=== PATIENT | female | born 1985 | race Caucasian/White ===

== ENCOUNTER 2016-10-07 11:31 | Day surgery (SDC) | payer BC ==
[~2016-10-07] VITALS: Ht 154.9 cm; Wt 62.5 kg
[2016-10-07] VITALS (33 sets, daily range): BP systolic 91–127; BP diastolic 52–78; PULSE 74–106; RESP 11–64; TEMP 96.3–98.6; O2SAT 90–100; Ht 154.9 cm; Wt 62.5 kg
[~2016-10-07 11:31] MED LIST: CEFAZOLIN 1 GRAM INJECTION IV ONE; ESCI5TAB8 PO; LR 1,000 ML IV PRN; MULT-806 PO; PREN1TAB73 PO; [UNRECOGNIZED DRUG - CODE] PO
[2016-10-07 12:27] LABS: BASOPHILS # (AUTO) 0.1 T/MM3 (0-0.2); EOSINOPHILS # (AUTO) 0.2 T/MM3 (0-0.5); EOSINOPHILS % (AUTO) 3.9 % (0-4); HCT - HEMATOCRIT 40.1 % (36-46); HGB - HEMOGLOBIN 13.8 GM/DL (12-16); IMMATURE GRANULOCYTE # (AUTO) 0.01 T/MM3 (0.00-0.03); IMMATURE GRANULOCYTE % (AUTO) 0.2 % (0.0-0.5); LYMPHOCYTES # (AUTO) 2.1 T/MM3 (1-4.8); LYMPHOCYTES % (AUTO) 42.2 % (23-45); MEAN CORPUSCULAR HGB 30.5 UUG (26-34); MEAN CORPUSCULAR HGB CONC(MCHC 34.4 GM/DL (31-37); MEAN CORPUSCULAR VOLUME 88.7 UM3 (80-100); MEAN PLATELET VOLUME 10.5 UM3 (9.4-12.4); MONOCYTES # (AUTO) 0.2 T/MM3 (0-0.8); MONOCYTES % (AUTO) 4.9 % (0-9.0); NEUTROPHILS #(AUTO)-ABSOLUTE 2.3 T/MM3 (1.8-7.7); NEUTROPHILS % (AUTO) 47.8 % (33-66); RED BLOOD COUNT 4.52 M/MM3 (4.00-5.20); WBC - WHITE BLOOD COUNT 4.9 T/MM3 (4.5-11.0)
[2016-10-07 12:38] LABS: ALBUMIN 4.6 G/DL (3.5-5.0); ALBUMIN/GLOBULIN RATIO 1.3 RATIO (1.1-2.2); ALKALINE PHOSPHATASE 74 U/L (38-126); ALT (SGPT) 31 U/L (9-52); ANION GAP 15 MEQ/L (5-15); AST (SGOT) 27 U/L (14-36); BUN/CREATININE RATIO 21 RATIO (6-26); CHLORIDE 104 MEQ/L (98-107); CO2 - CARBON DIOXIDE 25 MEQ/L (22-30); CREATININE 0.8 MG/DL (0.7-1.2); GLOMERULAR FILTRATION RATE 84; GLUCOSE 101 MG/DL (65-110); POTASSIUM 3.6 MEQ/L (3.6-5); SODIUM 144 MEQ/L (134-144); TOTAL PROTEIN 8.2 G/DL (6.3-8.2)
[2016-10-07 13:28] LABS: BLOOD, URINE 1+ (NEGATIVE); COLOR,URINE YELLOW (YELLOW); LEUKOCYTE ESTERASE ,URINE NEGATIVE (NEGATIVE); NITRITE,URINE NEGATIVE (NEGATIVE); UROBILINOGEN,URINE 0.2 EU/DL (NORMAL)
[2016-10-07] MEDS ORDERED: BUPIVACAINE 0.25% (2.5mg/ml) INJ 30ml SDV ONE (13:37)
[2016-10-07 13:40] LABS: BACTERIA,URINE 3+ (NEGATIVE); RBC,URINE 0-1 /HPF (0-3); SQUAMOUS EPITHELIAL CELL,UR 0-5; WBC,URINE 0-1 /HPF (0-5)
--- NOTE | 2016-10-07 14:02 | ANESPREOP ---
Anesthesia Record Date and Time DATE: 10/07/16 TIME: 13:59 Pre-Op Diagnosis ovarian cyst menorrhagia dysmenorrhea Proposed Surgical Procedure ROBOTIC TOTAL LAP HYSTERERCTOMY BILATERAL SALPINGECTOMY Allergies: Coded Allergies: No Known Allergies (Verified , 10/07/16) Ht/Wt/BMI Height: 5 ' 1.00 " Weight: 59.500 kg BMI: 24.8 kg/m2 Vital Signs Date Time Temp Pulse Resp B/P Pulse Ox O2 Delivery O2 Flow Rate FiO2 10/07/16 13:27 98.6 10/07/16 12:09 91/58 10/07/16 12:08 89 18 98 Room Air Medications Inpatient Medications Current Medications Medications (Trade) Dose Ordered Sig/Dia Start Time Stop Time Status Last Admin Dose Admin Lactated Ringer's (Lactated Ringers) 1,000 ml @ 50 mls/hr Q20H PRN 10/07/16 07:00 Calcium Polycarbophil (Fiber Therapy) 625 Mg Tablet, 1 TAB PO DAILY, (Reported) Last Taken: on 10/05/16 Escitalopram Oxalate (Escitalopram Oxalate) 5 Mg Tablet, 1 TAB PO DAILY, (Reported) Last Taken: on 10/07/16 0600 Multivitamins (Multivitamin) 1 Tab Tablet, 1 TAB PO DAILY, (Reported) Last Taken: on 10/01/16 0600 Pnv95/Ferrous Fumarate/FA ( Tablet) 1 Each Tablet, 1 TAB PO DAILY, (Reported) Last Taken: on 10/04/16 Currently on Beta Jcarlos: No Medical/Surgical History Anesthesia PMH: Reports: Asthma (inhaler as needed), Headaches (Migraines, frequently, had one today, for the past 2 years), Denies: *Diabetes, Anesthesia Reactions (NO AIRWAY ISSUES), Arthritis, Cancer, Clotting Problems, Glaucoma, Malignant Hyperthermia, Renal Disease, Sleep Apnea, Thyroid Disease Smoking Status: Former smoker Has pt. smoked today?: No Use Chewing Tobacco?: No Second Hand Exposure: No Substance Use Type: does not use Substance last used: unknown Alcohol Intake: none Last Drink: unknown HX of Last Menstrual Period: OCTOBER 2016 Past Surgical History Orthopedic Surgeries: Abdominal Surgeries: Genitourinary Surgeries: Cardiac Surgeries: Endocrine Surgeries: Reproductive Surgeries: Neurological Surgeries: Ear Surgeries: Nose Surgeries: Throat Surgeries: Other Surgeries: Anesthesia Adverse Reactions: FOUND none Family Hx of Anesthesia Advers: none Hx of Motion Sickness: No Pertinent Findings Laboratory Tests 10/07/16 12:04 Test 10/07/16 12:04 Human Chorionic Gonadotropin, Qual Negative (NEGATIVE) EKG Rhythm: Sinus Rhythm Physical Exam Respiratory: Bilat breath sounds equal, Lungs clear Cardiovascular: FOUND Regular rate, rhythm, FOUND No murmur Airway Assessment Mallampati Score: I TMD: 3 Fingerbreadths Neck Extension: Good Overall Assessment: No Airway Concerns ASA: 1 Plan Anesthesia Plan: GETA Discussion Discussed risks/options/alternatives of anesthesia and questions answered. Patient consents. Nursing pain assessment noted. Present: Spouse Attestation Statement Prior to the delivery of any anesthetic medication, I examined the patient, developed the plan, obtained the patient's consent and discussed the risk and benefits of the procedure with the patient/guardian. AMI SERRANO CRNA Oct 07, 2016 14:02
[2016-10-07] MEDS ORDERED: LIDOCAINE 2% (20mg/ml) 5ml PF SDV ONE (14:09)
[2016-10-07] MEDS ORDERED: PROPOFOL 200mg 20 ML IV ONE (14:09)
[2016-10-07] MEDS ORDERED: FENTANYL 250mcg/5ml INJECTION ONE (14:12)
[2016-10-07] MEDS ORDERED: EPHEDRINE SULFATE 50mg/ml INJECTION ONE (14:38)
[2016-10-07] MEDS ORDERED: ROCURONIUM 50mg/5ml INJECTION IV ONE (16:00)
[2016-10-07] MEDS ORDERED: LR 1000 ML IV ONE (16:00)
[2016-10-07] MEDS ORDERED: D5LR 1,000 ML IV SCH (16:02)
--- NOTE | 2016-10-07 16:02 | GYNOPNOTE1 ---
[facility] Postoperative Note Date of Operation: 10/07/16 Preoperative Diagnosis: Menorrhagia, Pelvic Pain, Ovarian Cyst Postoperative Diagnosis: Same as Preoperative Postoperative Dx Comments Ovarian cyst resolved Hysterectomy: RALH Bilateral Salpingectomy Surgeon: Everett Han MD Anesthesia Provider: Nick Carrillo CRNA Anesthesia Type: general Complications: None Estimated Blood Loss: 20 EVERETT HAN MD Oct 07, 2016 16:02
[2016-10-07] MEDS ORDERED: METOCLOPRAMIDE 10mg/2ml INJECTION IV PRN ×2 (16:15→16:45)
[2016-10-07] MEDS ORDERED: IBUPROFEN 800 MG TABLET PO PRN (16:15)
[2016-10-07] MEDS ORDERED: MORPHINE SULFATE 4 MG SYRINGE IV PRN (16:15)
[2016-10-07] MEDS: HYDROMORPHONE 2mg/ml INJECTION IV PRN ×2 (16:40→16:56)
[2016-10-07] MEDS ORDERED: KETOROLAC 30mg/ml INJECTION IV ONE (16:45)
[2016-10-07] MEDS ORDERED: ONDANSETRON 4mg/2ml INJECTION IV PRN (16:45)
--- NOTE | 2016-10-07 17:04 | ANESPO ---
Post-Op Note Date 10/07/16 Time: 17:03 Status Pt Participated in Evaluation: Pt participated in person Vital Signs Date Time Temp Pulse Resp B/P Pulse Ox O2 Delivery O2 Flow Rate FiO2 10/07/16 17:00 96 32 112/62 99 Room Air 10/07/16 16:09 97.1 Respiratory Function: Airway patent Cardiovascular Function: Regular pulse Telemetry Pattern: SR Mental Status: Alert/oriented Pain Level Intensity: 7 Hydration: IV infusing Complications during Recovery None apparent Follow-Up Instructions Instructions Per Surgeon VARUN RAI CRNA Oct 07, 2016 17:04
--- NOTE | 2016-10-07 17:30 | NUR ---
ARRIVAL ARRIVES TO ROOM 134 VIA CART. PATIENT TRANSFERRED SELF FROM CART TO BED. O2 2L PER NC. IVF INFUSING. 4 LAP SITES WITH DERMABOND. SIDE RAILS UPX2, CALL LIGHT WITHIN REACH, BED IN LOWEST POSITION, BED ALARM ACTIVATED. FAMILY AT BEDSIDE. KAREN BUSTAMANTE RN NOTIFIED OF PATIENT'S ARRIVAL.
[2016-10-07] MEDS: SIMETHICONE 80 MG CHEWABLE TABLET PO SCH ×2 (18:15→20:58)
--- NOTE | 2016-10-07 18:29 | NUR ---
STATUS PATIENT IS ALERT AND ORIENTED X3. PATIENT VITALS ARE STABLE AND PATIENT IS ON 2L VIA NC. PATIENT HAS NOT VOIDED AT THIS TIME, NOR AMBULATED. PATIENT DENIES CP, NAUSEA, AND SOA. FAMILY AT BEDSIDE. WILL CONTINUE TO MONITOR.
[2016-10-07 20:06] LABS: HGB - HEMOGLOBIN 11.9 GM/DL (12-16)
[2016-10-07] MEDS: IBUPROFEN 800 MG TABLET PO PRN (20:58)
[2016-10-07] MEDS: ONDANSETRON 4mg/2ml INJECTION IV PRN (20:58)
[2016-10-07] MEDS: HYDROCODONE/APAP 5 mg/325 mg TABLET PO PRN (22:23)
--- NOTE | 2016-10-07 22:23 | NUR ---
FLUIDS DECREASED FLUIDS TO 125ML/HR PER DR'S ORDERS.
[2016-10-08] VITALS (10 sets, daily range): BP systolic 89–104; BP diastolic 53–68; PULSE 66–94; RESP 16–20; TEMP 97.3–98.3; O2SAT 95–97
[2016-10-08] MEDS: D5LR 1,000 ML IV SCH ×2 (01:17→09:26)
[2016-10-08] MEDS: HYDROCODONE/APAP 5 mg/325 mg TABLET PO PRN ×3 (03:51→14:34)
--- NOTE | 2016-10-08 06:16 | NUR ---
Shift Summary Pt alert and oriented x3, vital signs stable on room air. Pt denies c/p,n/v and SOA. Pt has rated pain a 8-9/10 throughout the night. PRN motrin and norco have been used. Pt states that the pain is tolerable after the medications. Pt has been up twice on this shift to the bathroom. Pt ambulates with a standby assist. Pt has had adequate urine output at this time. Will continue to monitor.
[2016-10-08] MEDS: IBUPROFEN 800 MG TABLET PO PRN (06:43)
[2016-10-08] MEDS ORDERED: DOCUSATE CALCIUM 240 MG CAPSULE PO SCH (09:00)
[2016-10-08] MEDS: SIMETHICONE 80 MG CHEWABLE TABLET PO SCH ×2 (09:37→12:58)
[2016-10-08] MEDS: ONDANSETRON 4mg/2ml INJECTION IV PRN (09:37)
--- NOTE | 2016-10-08 09:39 | OPNOTEF ---
DATE OF PROCEDURE 10/07/2016 PREOPERATIVE DIAGNOSES 1. Menorrhagia. 2. Dysmenorrhea. 3. Ovarian cyst. POSTOPERATIVE DIAGNOSES 1. Menorrhagia. 2. Dysmenorrhea. 3. Ovarian cyst resolved. PROCEDURE Robotic-assisted laparoscopic hysterectomy and bilateral salpingectomy. SURGEON Dr. Isabel Han. ANESTHESIA General endotracheal by TERENCE Romero. COMPLICATIONS None. ESTIMATED BLOOD LOSS 20 mL. FINDINGS Normal-sized uterus and normal-appearing adnexa. She did have larger than what I would expect uterine vasculature for the size of her uterus. Normal-appearing gallbladder edge. DESCRIPTION OF PROCEDURE The patient was taken to the operating room where anesthesia was obtained. She was placed in the lithotomy position and prepared and draped in a normal sterile fashion. A Gilliland catheter was placed in the bladder. An open-sided speculum was placed in the vagina. The anterior cervix was grasped with an Allis. The uterus sounded to 8 cm, so an 8 cm tip was chosen for the arch manipulator as well as a 3.5-cm cup. The cervix was dilated to 19-Congolese. A jabdpx-cr-ojaoa of 0 Vicryl was placed on the cervix for retraction. The arch manipulator was threaded through the cervix and secured into place. All other instruments were removed from the vagina. The patient's legs were lowered, gloves were changed, and attention was turned to the abdomen. All skin incisions were injected with 0.25% Marcaine prior to incision. A 12-mm supraumbilical incision was made. A Veress needle was placed. A hanging drop confirmed intraabdominal placement. The abdomen was insufflated with CO2. A 12-mm bladeless trocar was placed and camera again confirmed intraabdominal placement. She was placed in a small amount of Trendelenburg. Then, 8-mm ports were placed bilaterally approximately 10 cm and slightly inferior under direct visualization. An 8-mm assistant principal port was placed in the left upper quadrant. This was connected to the AirSeal device. The patient was placed in steep Trendelenburg. The bowels were swept out of the posterior cul-de-sac, and she was brought back to approximately 22 degrees. The robot was brought up to the bedside and docked. A fenestrated bipolar was placed in the left hand and monopolar scissors in the right hand. The ureters were easily visualized. The left mesosalpinx was cauterized and transected. The left uteroovarian suspensory ligament was cauterized and transected as well as the left round ligament. The anterior leaf of the broad ligament was opened to the midline at the level of the vaginal cuff ring and then opened to the right round ligament. This was cauterized and transected. The right mesosalpinx was cauterized and transected. The right uteroovarian suspensory ligament was cauterized and transected all with good hemostasis noted. The bladder was carefully dissected off of the anterior cervix past the vaginal cuff ring with the monopolar scissors. The uterine vasculature was carefully skeletonized. It was then cauterized multiple times and transected with good hemostasis noted. An anterior colpotomy was created and carried around circumferentially until the entire cervix had been excised from the vagina. The uterus, cervix, and tubes were all delivered through the vagina. The vaginal cuff was closed with running V-Loc suture. The vaginal cuff angles were plicated to the ipsilateral uterosacral ligaments during this process. Good hemostasis was noted. The pelvis was irrigated. The bladder was filled with saline and no obvious leakage was noted. The bladder was allowed to drain. The pressure in the abdomen was dropped to 5, and good hemostasis was still seen. The robot was undocked. The pelvis was inspected one final time. The two side ports were removed under direct visualization. The abdomen was desufflated with the help of the AirSeal device and the final two ports were removed. A [id number] of 0 Vicryl was placed to close the fascia at the 12-mm port site. Hemostasis was obtained in the subcutaneous tissue with the cautery. The skin edges were closed with 4-0 Vicryl in a subcuticular manner. Dermabond was placed. Attention was returned to the vagina. The vaginal cuff was noted to be intact and hemostatic. The speculum was removed. The patient's Gilliland catheter was removed. She was taken out of the lithotomy position into the recovery room in good condition. Sponge and sharp counts were correct. The patient tolerated the procedure well. ALESSANDRO
--- NOTE | 2016-10-08 09:43 | NUR ---
PAIN CONTROL Having difficulty with pain control this morning. Morphine 2 mg IV was given prior to availability of Arnold. Patient then was able to toilet, bathe, and ambulate a short distance, then sit in the recliner. However she continued to complain of significant abdominal and lower back pain, and Arnold was administered. Currently patient was assisted back to bed after breakfast, given Zofran for nausea, Simethicone, and assisted to turn on her side/reposition for comfort. SCDs are off at present due to itching related to the plastic. Patient was instructed to move her legs/pump her ankles frequently, and breathe deeply.
--- NOTE | 2016-10-08 10:40 | NUR ---
CM THIS WORKER MET WITH PT AT THIS TIME. NO OTHERS PRESENT. PT REPORTED THAT SHE WAS PLANNING TO RETURN HOME WITH WHEN DISCHARGE. PT REPORTED THAT SHE HAD ADDITIONAL HELP IF NEEDED. PT DENIED ANY NEEDS AT THIS TIME. THIS WORKER PROVIDED CONTACT INFORMATION FOR PT AND ENCOURAGED TO CONTACT THIS WORKER WITH ANY NEEDS.
--- NOTE | 2016-10-08 11:47 | GYNOPNOTE1 ---
Postoperative Note 10/08/16 POD#1 s/p robotic assisted BTL with bilateral salpingectomy, 20cc EBL. Patient reports her pain control has been an issue overnight and this AM - only received po pain meds in the evening and overnight - did get IV Morphine this AM. She has been up to the bathroom but that was hard to do. Voiding without difficulty. Has some regular diet. Pain is generalized abdominal, worse where the incisions are (especially supraumbilical). +limited ambulation. Did not get very much rest at all during the night. No flatus. AFVSS. No tachycardia, normotensive. NAD Abd soft, nontender but mild discomfort in all quadrants, no rebound/guarding Shanta is dry Hgb 13.8 (pre-op) --> 11.9 (post-op) Continue routine care. Check CBC again and if stable, will give IV Toradol for pain relief, increase [place] to 10/325 mg at discharge. Pain profile reviewed with patient, seems to be getting drowsy from this morning 's multiple doses. Bowel regimen discussed - it seems like a lot of her discomfort is from gas pain. Plan for discharge home this PM if pain is adequately controlled. SHAYLEE CASAREZ MD Oct 08, 2016 11:02
[2016-10-08] MEDS ORDERED: HYDR-4078 PO (11:58)
[2016-10-08] MEDS ORDERED: DOCU-168 PO (11:58)
[2016-10-08] MEDS ORDERED: IBUP-1547 PO (11:58)
[2016-10-08 12:02] LABS: MEAN CORPUSCULAR HGB 30.5 UUG (26-34); MEAN CORPUSCULAR HGB CONC(MCHC 33.3 GM/DL (31-37); MEAN CORPUSCULAR VOLUME 91.4 UM3 (80-100); MEAN PLATELET VOLUME 10.1 UM3 (9.4-12.4); RED BLOOD COUNT 3.61 M/MM3 (4.00-5.20); WBC - WHITE BLOOD COUNT 8.3 T/MM3 (4.5-11.0)
--- NOTE | 2016-10-08 12:50 | NUR ---
HEMAGRAM/TORADOL Notified Dr Brantley of hemagram results. Order received for 15 mg of IV Toradol x 1. Syed CRUZ will administer the dose at this time.
[2016-10-08] MEDS ORDERED: KETOROLAC 30mg/ml INJECTION IV ONE (13:00)
--- NOTE | 2016-10-08 16:13 | NUR ---
DISMISSAL PT DISMISSED HOME TODAY. PT LEFT THE UNIT VIA WHEEL CHAIR AND LEFT THE HOSPITAL VIA THE FRONT ENTRANCE. PT GIVEN INSTRUCTIONS RELATED TO DIET, ACTIVITY, HOME MEDICATIONS, NEW SCRIPTS, FOLLOW UP APPOINTMENTS, AND REASONS TO CALL THE DOCTOR. PT'S IV WAS DISCONTINUED PRIOR TO DISMISSAL, AND THE CATHETER TIP INTACT. PT'S GIVEN SCRIPTS. PT INSTRUCTED TO CALL IF SHE HAS INSTRUCTIONS RELATED TO HER CARES.
== END 2016-10-08 16:13 | disposition home or self-care (01) ==
LOC: SCU 11:31 → SRG 11:33 → SCU 10-08 16:13
PROVIDERS: ATTEND Obstetrics & Gynecology
DX: N72 Inflammatory disease of cervix uteri (principal); N87.9 Dysplasia of cervix uteri, unspecified; N92.4 Excessive bleeding in the premenopausal period; N94.4 Primary dysmenorrhea
CPT/HCPCS: 36415; 58571; 80053; 81001; 84703; 85014; 85018; 85025; 85027; 86850; 86900; 86901; 94762; J0690; J1170; J1885; J2405; J2704; J3010; J7120; J7121; S0020; S2900